=== PATIENT | male | born 1985 | race African-American/Black ===

== ENCOUNTER 2024-11-17 18:50 | Emergency (ER) | payer MEDICAID, OTHER ==
[~2024-11-17] VITALS: Ht 177.8 cm; Wt 93.0 kg
[2024-11-17 18:56] VITALS: O2SAT 98
[2024-11-17] MEDS ORDERED: TOPUD MT (21:49)
[2024-11-17] MEDS ORDERED: IBUP-1525 MT (21:49)
[2024-11-17 22:30] VITALS: BP 158/100; PULSE 94; RESP 20; TEMP 36.7; O2SAT 100
== END 2024-11-17 22:33 | disposition home or self-care (01) ==
LOC: ER 18:50
DX: S40.012A Contusion of left shoulder, initial encounter (principal); S10.83XA Contusion of other specified part of neck, initial encounter; S30.0XXA Contusion of lower back and pelvis, initial encounter; M47.812 Spondylosis without myelopathy or radiculopathy, cervical region; M47.816 Spondylosis without myelopathy or radiculopathy, lumbar region; Z79.1 Long term (current) use of non-steroidal anti-inflammatories (NSAID); V89.2XXA Person injured in unspecified motor-vehicle accident, traffic, initial encounter; Y93.9 Activity, unspecified; Y92.89 Other specified places as the place of occurrence of the external cause; Y99.8 Other external cause status
CPT/HCPCS: 72040; 72100; 73030; 99284